=== PATIENT | female | born 1950 | race Caucasian/White ===

== ENCOUNTER 2017-03-01 08:00 | Outpatient (CLI) | payer BC | END 2017-03-01 23:59 | DX: Z00.00 Encounter for general adult medical examination without abnormal findings (principal); E55.9 Vitamin D deficiency, unspecified; E78.5 Hyperlipidemia, unspecified; R53.83 Other fatigue ==

== ENCOUNTER 2018-08-22 11:44 | Outpatient (CLI) | payer BC ==
--- NOTE | 2018-08-22 16:13 | XRAY Report ---
Reason: COUGH FOR 4 WKS Procedure Date: 08/22/2018 Accession Number: [id number] / [id number] Procedure: XR - Chest 2 View X-Ray CPT Code: 53517 FULL RESULT: EXAM: CHEST RADIOGRAPHY EXAM DATE: 08/22/2018 11:56 AM. CLINICAL HISTORY: Cough for 4 weeks. COMPARISON: None. TECHNIQUE: 2 views. FINDINGS: Lungs/Pleura: No focal opacities evident. No pleural effusion. No pneumothorax. Normal volumes. Mediastinum: Heart and mediastinal contours are unremarkable. Other: None. IMPRESSION: Normal 2-view chest radiography. [facility]
== END 2018-08-22 11:45 | disposition home or self-care (01) ==
LOC: DI 11:44
PROVIDERS: ATTEND Nurse Practitioner Family
DX: R05 Cough (principal); R09.3 Abnormal sputum
CPT/HCPCS: 71046

== ENCOUNTER 2019-01-26 12:45 | Outpatient (CLI) | payer BC | END 2019-01-26 12:46 | disposition critical access hospital (66) | LOC: EMS 12:45 | PROVIDERS: ATTEND Surgery | DX: R51 Headache (principal); M25.561 Pain in right knee; R42 Dizziness and giddiness; R09.89 Other specified symptoms and signs involving the circulatory and respiratory systems; W55.19XA Other contact with horse, initial encounter; Y92.009 Unspecified place in unspecified non-institutional (private) residence as the place of occurrence of the external cause | CPT/HCPCS: A0425; A0429 ==

== ENCOUNTER 2019-01-26 13:17 | Emergency (ER) | payer BC ==
--- NOTE | 2019-01-26 13:25 | ED Physician Documentation ---
PD HPI Fall - Stated complaint Stated Complaint: FALL INJURY - History obtained from History obtained from: Patient - History of Present Illness Mechanism of injury: Slipped (Her horse got spooked and knocked her over and then may be trampled her. She is amnestic to it. The major source of pain is her head and right knee. She has been ambulatory briefly since the incident.) Review of Systems Constitutional: denies: Fever, Chills Respiratory: denies: Dyspnea, Cough GI: denies: Abdominal Pain, Nausea, Vomiting, Diarrhea Musculoskeletal: denies: Back pain PD PAST MEDICAL HISTORY - Past Surgical History Past Surgical History: Yes - Present Medications Home Medications: Ambulatory Orders Medication Instructions Recorded Confirmed Hydrocodone/Acetaminophen 1 each PO Q6H PRN #15 tablet 03/11/14 [Hydrocodon-Acetaminophen 5-325] No Known Home Medications 03/11/14 03/11/14 - Allergies Allergies/Adverse Reactions: Allergies Allergy/AdvReac Type Severity Reaction Status Date / Time latex Allergy Unknown Verified 01/26/19 13:27 soy Allergy Cramps Verified 01/26/19 13:27 - Social History Does the pt smoke?: No Smoking Status: Never smoker Does the pt drink ETOH?: Yes Does the pt have substance abuse?: No - Immunizations Immunizations are current?: No Immunizations: TDAP >10years/unknown - POLST Patient has POLST: No PD ED PE NORMAL - Vitals Vital signs reviewed: Yes - General General: Alert and oriented X 3, No acute distress - HEENT HEENT: PERRL, EOMI - Neck Neck: Other (Very mild upper C-spine tenderness, c-collar maintained pending imaging, backward removed using logroll precautions during exam.) - Cardiac Cardiac: RRR, No murmur - Respiratory Respiratory: No respiratory distress, Clear bilaterally - Abdomen Abdomen: Normal bowel sounds, Soft, Non tender - Back Back: No CVA TTP, No spinal TTP - Derm Derm: Normal color, Warm and dry - Extremities Extremities: Other (Tender to the anterior and medial right knee and tenderness above the right ankle and to the anterior left alamo without deformity.) - Neuro Neuro: Alert and oriented X 3, Normal speech Eye Opening: Spontaneous Motor: Obeys Commands Verbal: Oriented GCS Score: 15 - Psych Psych: Normal mood, Normal affect Results - Vitals Vitals: Vital Signs - 24 hr 01/26/19 01/26/19 13:24 13:27 Temperature 36.1 C L Heart Rate 73 64 Respiratory 14 16 Rate Blood Pressure 127/61 120/58 L O2 Saturation 100 100 Oxygen O2 Source Room air - Rads (name of study) CT Head and Cspine Radiology: EMP read contemporaneously (degen dz, NAD) Tib fib XRs Bilat and R knee 4v Radiology: EMP read contemporaneously (normal) Departure - Departure Disposition: 01 Home, Self Care Clinical Impression: Neck pain Concussion Qualifiers: Encounter type: initial encounter Loss of consciousness presence/duration: with LOC of 30 min or less Qualified Code(s): S06.0X1A - Concussion with loss of consciousness of 30 minutes or less, initial encounter Right knee sprain Qualifiers: Encounter type: initial encounter Involved ligament of knee: medial collateral ligament Qualified Code(s): S83.411A - Sprain of medial collateral ligament of right knee, initial encounter Contusion of right leg Qualifiers: Encounter type: initial encounter Qualified Code(s): S80.11XA - Contusion of right lower leg, initial encounter Contusion of left leg Qualifiers: Encounter type: initial encounter Qualified Code(s): S80.12XA - Contusion of left lower leg, initial encounter Condition: Good Record reviewed to determine appropriate education?: Yes Instructions: ED Sprain Knee, ED Concussion Comments: Follow-up with your doctor at the end of the week for recheck. Return for new or worsening symptoms. You can take Tylenol or naproxen as needed for pain.
[2019-01-26] MEDS: NAPROXEN 250 MG TABLET PO STA ×2 (13:35→15:19)
--- NOTE | 2019-01-26 14:50 | CT Report ---
Reason: alyson dinhonorio Procedure Date: 01/26/2019 Accession Number: [id number] / [id number] Procedure: CT - HEAD WO CPT Code: FULL RESULT: EXAM: CT HEAD EXAM DATE: 01/26/2019 02:29 PM. CLINICAL HISTORY: Head injury COMPARISON: None. TECHNIQUE: Multiaxial CT images were obtained from the foramen magnum to the vertex. Reformats: Sagittal and coronal. IV contrast: None. In accordance with CT protocol optimization, one or more of the following dose reduction techniques were utilized for this exam: automated exposure control, adjustment of mA and/or KV based on patient size, or use of iterative reconstructive technique. FINDINGS: Parenchyma: No intraparenchymal hemorrhage. No evidence of mass, midline shift, or CT findings of infarction. Beaulieu-white differentiation is distinct. Extraaxial Spaces: No subdural or epidural collections identified. Ventricles: Normal in size and position. Sinuses and Orbits: Imaged paranasal sinuses, orbits, and mastoids show no significant abnormality. Bones: No evidence of fracture or calvarial defect. Other: None. IMPRESSION: 1. Negative for an acute or focal intracranial abnormality. [facility]
--- NOTE | 2019-01-26 14:54 | CT Report ---
Reason: neck pain Procedure Date: 01/26/2019 Accession Number: [id number] / [id number] Procedure: CT - CERVICAL SPINE WO CPT Code: FULL RESULT: EXAM: CT CERVICAL SPINE WITHOUT CONTRAST DATE: 01/26/2019 02:29 PM. HISTORY: Neck pain. COMPARISONS: None. TECHNIQUE: Thin-section axial images were acquired of the cervical spine without contrast. Post-processing: Coronal and sagittal reformats. Other: None. In accordance with CT protocol optimization, one or more of the following dose reduction techniques were utilized for this exam: automated exposure control, adjustment of mA and/or KV based on patient size, or use of iterative reconstructive technique. FINDINGS: Alignment: No scoliosis or spondylolisthesis. Bones: No fracture or bone lesion. Interspace Levels/Facets: There is moderate disk height loss at C4-C5, C5-C6, and C6-C7. There is mild bony central spinal canal stenosis at C6-C7 secondary to posterior disk osteophyte spurring. Facet joints appear in satisfactory alignment. Musculature: Normal. No fatty atrophy. Other: No apical pneumothorax. Trachea is midline. IMPRESSION: 1. Negative for acute fracture and subluxation of cervical spine. 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 [facility]
[2019-01-26 15:01] VITALS: BP 120/58
--- NOTE | 2019-01-26 15:05 | XRAY Report ---
Reason: knee/leg inj Procedure Date: 01/26/2019 Accession Number: [id number] / [id number] Procedure: XR - Knee 4 View RT CPT Code: FULL RESULT: EXAM: RIGHT KNEE RADIOGRAPHY EXAM DATE: 01/26/2019 02:54 PM. CLINICAL HISTORY: Knee pain after fall from horse. COMPARISON: None. TECHNIQUE: 3 views. FINDINGS: Bones: Normal. No fractures or bone lesions. Joints: Normal. No effusion. No subluxations. Soft Tissues: Normal. No soft tissue swelling. IMPRESSION: No acute radiographic abnormality identified. [facility]
--- NOTE | 2019-01-26 15:06 | XRAY Report ---
Reason: knee/leg inj Procedure Date: 01/26/2019 Accession Number: [id number] / [id number] Procedure: XR - Tib/Fib BILAT CPT Code: FULL RESULT: EXAM: BILATERAL TIBIA/FIBULA RADIOGRAPHY EXAM DATE: 01/26/2019 02:27 PM. CLINICAL HISTORY: Leg pain after fall from horse. COMPARISON: None. TECHNIQUE: 2 views. FINDINGS: Bones: Normal. No fracture or bone lesion. Joints: The visualized knee and ankle joints are normal. No effusions. Soft Tissues: Normal. No soft tissue swelling. IMPRESSION: No acute radiographic abnormality. [facility]
== END 2019-01-26 15:41 | disposition home or self-care (01) ==
LOC: EDUNIT# → ED 13:17
DX: S06.0X1A Concussion with loss of consciousness of 30 minutes or less, initial encounter (principal); S83.411A Sprain of medial collateral ligament of right knee, initial encounter; S80.11XA Contusion of right lower leg, initial encounter; S80.12XA Contusion of left lower leg, initial encounter; W55.12XA Struck by horse, initial encounter; Y93.89 Activity, other specified; M50.321 Other cervical disc degeneration at C4-C5 level
CPT/HCPCS: 70450; 72125; 73564; 73590; 99283; A9270

== ENCOUNTER 2019-05-09 12:57 | Outpatient (CLI) | payer BC ==
--- NOTE | 2019-05-09 13:58 | DEXA Report ---
Reason: POST MENOPAUSAL STATE Procedure Date: 05/09/2019 Accession Number: [id number] / [id number] Procedure: DEX - Dexa Spine and/or Hip CPT Code: FULL RESULT: EXAM: Dexa Spine and/or Hip DATE: 05/09/2019 1:24 PM CLINICAL HISTORY: POST MENOPAUSAL STATE TECHNIQUE: Dual energy x-ray absorptiometry (DXA) was performed on a [employer] System. Regions measured are the AP Spine, femoral neck, and if needed forearm. COMPARISON: None. In accordance with the International Society for Clinical Densitometry (ISCD) guidelines, data from previous exams may be reanalyzed using current recommendations and techniques. This is done to allow a more accurate basis for comparison with the current study. FINDINGS: The data for the lumbar spine is as follows: BMD (g/cm/cm) T-SCORE Z-SCORE REGION L1 1.079 -0.4 1.3 L2 1.148 -0.4 1.3 L3 1.252 0.4 2.1 L4 1.194 -0.1 1.6 TOTAL 1.173 -0.1 1.6 NOTE: All evaluable vertebrae are used for classification The data for the hip is as follows: BMD (g/cm/cm) T-SCORE Z-SCORE REGION Neck 0.819 -1.6 0.2 TOTAL 0.898 -0.9 0.6 NOTE: The femoral neck or total proximal femur, whichever is lowest, is used for classification. IMPRESSION: THE WHO CLASSIFICATION BASED ON THE INTERNATIONAL REFERENCE STANDARD IS NORMAL. THE FRACTURE RISK IS NOT INCREASED. RECOMMENDATION: Patients with diagnosis of osteoporosis or osteopenia should have regular bone mineral density assessment. For those eligible for Medicare, routine testing is allowed once every 2 years. Testing frequency can be increased for patients who have rapidly progressing disease or for those who are receiving medical therapy to restore bone mass. COMMENT: World Health Organization (WHO) definitions for osteoporosis and osteopenia: NORMAL BMD: T-score at -1.0 or higher, fracture risk is low OSTEOPENIA BMD: T-score between -1.0 and -2.5, fracture risk is increased. OSTEOPOROSIS BMD: T-score at -2.5 or lower, fracture risk is high. National Osteoporosis Foundation recommends: 1. Obtain adequate dietary calcium (at least 1200 mg per day) and vitamin D (400-800 international units per day). 2. Participate, as appropriate, in regular weightbearing and muscle-strengthening exercise. 3. Avoid tobacco use and reduce alcohol and caffeine intake. 4. For more detailed information see the website at www.NOF.org.
== END 2019-05-09 12:58 | disposition home or self-care (01) ==
LOC: DI 12:57
PROVIDERS: ATTEND Physician Assistant
DX: Z78.0 Asymptomatic menopausal state (principal)
CPT/HCPCS: 77080

== ENCOUNTER 2019-07-19 08:00 | Outpatient (CLI) | payer BC ==
[2019-07-19 11:59] LABS: BASOPHILS # (AUTO) 0.1 10^3/uL (0.0-0.1); BASOPHILS % (AUTO) 0.9 %; EOSINOPHILS # (AUTO) 0.3 10^3/uL (0.0-0.7); EOSINOPHILS % (AUTO) 4.9 %; HGB - HEMOGLOBIN 13.1 g/dL (12.0-16.0); LYMPHOCYTES # (AUTO) 1.8 10^3/uL (1.5-3.5); LYMPHOCYTES % (AUTO) 33.4 %; MEAN CORPUSCULAR HEMOGLOBIN 29.6 pg (27.0-31.0); MEAN CORPUSCULAR HGB CONC 30.9 g/dL (32.0-36.0); MEAN CORPUSCULAR VOLUME 95.9 fL (81.0-99.0); MEAN PLATELET VOLUME 11.5 fL (7.9-10.8); MONOCYTES # (AUTO) 0.5 10^3/uL (0.0-1.0); MONOCYTES % (AUTO) 9.1 %; NEUTROPHILS # (AUTO) 2.8 10^3/uL (1.5-6.6); NEUTROPHILS % (AUTO) 51.3 %; PLT - PLATELET COUNT 325 10^3/uL (130-450); RED BLOOD COUNT 4.42 10^6/uL (4.20-5.40); RED CELL DISTRIBUTION WIDTH 13.2 % (12.0-15.0); WHITE BLOOD COUNT 5.5 x10^3/uL (4.8-10.8)
[2019-07-19 12:07] LABS: ALBUMIN/GLOBULIN RATIO 1.4 (1.0-2.2); ALKALINE PHOSPHATASE 76 IU/L (42-121); ALT ALANINE AMINOTRANSFERASE 13 IU/L (10-60); AST ASPARTATE AMINOTRANSFERASE 18 IU/L (10-42); BILIRUBIN,TOTAL 0.6 mg/dL (0.2-1.0); BUN - BLOOD UREA NITROGEN 17 mg/dL (6-20); CALCIUM 9.4 mg/dL (8.5-10.3); CARBON DIOXIDE - CO2 28 mmol/L (21-32); CHLORIDE 105 mmol/L (101-111); CHOL/HDL RATIO 2.2 (<4.4); CHOLESTEROL 177 mg/dL; GFR - MDRD 55 (>89); GLUCOSE 89 mg/dL (70-100); HDL CHOLESTEROL 79 mg/dL; LDL CHOLESTEROL,CALCULATED 78 mg/dL; SODIUM 142 mmol/L (135-145); TOTAL PROTEIN 6.9 g/dL (6.7-8.2); VLDL CHOLESTEROL 20 mg/dL
[2019-07-19 12:19] LABS: THYROID STIMULATING HORMONE 2.43 uIU/mL (0.34-5.60)
[2019-07-19 12:21] LABS: FREE T4 (FREE THYROXINE) 0.72 ng/dL (0.58-1.64)
== END 2019-07-19 23:59 | disposition home or self-care (01) ==
LOC: LAB.N 08:00
PROVIDERS: ATTEND Physician Assistant
DX: J45.40 Moderate persistent asthma, uncomplicated (principal); G47.09 Other insomnia; Z13.220 Encounter for screening for lipoid disorders; Z13.1 Encounter for screening for diabetes mellitus
CPT/HCPCS: 36415; 80053; 80061; 83721; 84439; 84443; 85025

== ENCOUNTER 2021-01-16 16:48 | Emergency (ER) | payer MEDICARE, BC ==
[2021-01-16 17:00] VITALS: BP 126/62
--- NOTE | 2021-01-16 17:16 | ED Physician Documentation ---
History of Present Illness - Stated complaint Stated Complaint: numbness & tingling in face aftr vaccine - Chief complaint Chief Complaint: Allergic Rx - History obtained from History obtained from: Patient - Additonal information Additional information: 70-year-old woman received first dose Pfizer Covid vaccine last Monday, 6 days ago. Immediately developed shooting sensation across the face, both sides that is persistent now feeling numbness and tingling of the mouth and Areas as well as the gingiva. Review of Systems Constitutional: denies: Fever, Chills Eyes: denies: Loss of vision, Decreased vision, Photophobia Ears: denies: Loss of hearing, Ear pain Nose: denies: Rhinorrhea / runny nose, Congestion PD PAST MEDICAL HISTORY - Past Surgical History Past Surgical History: Yes - Present Medications Home Medications: Ambulatory Orders Medication Instructions Recorded Confirmed Hydrocodone/Acetaminophen 1 each PO Q6H PRN #15 tablet 03/11/14 [Hydrocodon-Acetaminophen 5-325] No Known Home Medications 03/11/14 03/11/14 - Allergies Allergies/Adverse Reactions: Allergies Allergy/AdvReac Type Severity Reaction Status Date / Time latex Allergy Unknown Verified 01/16/21 17:00 soy Allergy Cramps Verified 01/16/21 17:00 - Social History Does the pt smoke?: No Smoking Status: Never smoker Does the pt drink ETOH?: Yes Does the pt have substance abuse?: No - Immunizations Immunizations are current?: No Immunizations: TDAP >10years/unknown - POLST Patient has POLST: No PD ED PE NORMAL - Vitals Vital signs reviewed: Yes - General General: Alert and oriented X 3, No acute distress - HEENT HEENT: PERRL, EOMI - Neck Neck: Supple, no meningeal sign, No bony TTP - Neuro Neuro: Alert and oriented X 3, trial paralegal 2-12 intact (I am unable to recreate any numbness on examination and her cranial nerves save nerve one which was not tested (be she says she can smell normally) are normal), No motor deficit, No sensory deficit, Normal speech Eye Opening: Spontaneous Motor: Obeys Commands Verbal: Oriented GCS Score: 15 - Psych Psych: Normal mood, Normal affect Results - Vitals Vitals: Vital Signs - 24 hr 01/16/21 16:54 Temperature 36.2 C L Heart Rate 65 Respiratory 16 Rate Blood Pressure 126/62 O2 Saturation 99 Oxygen O2 Source Room air PD MEDICAL DECISION MAKING - ED course ED course: There are several mentions of this online and it looks like every case of it resolved without specific intervention. Nothing to suggest stroke as symptoms cross the midline Departure - Departure Disposition: 01 Home, Self Care Clinical Impression: Paresthesia of skin Condition: Good Record reviewed to determine appropriate education?: Yes Comments: Brief online search suggests that this is not an uncommon reaction to the vaccine. It is not dangerous though and should resolve over time. Return if worsening or if new symptoms develop. Talk out about the injuries and does Discharge Date/Time: 01/16/21 17:26
== END 2021-01-16 17:26 | disposition home or self-care (01) ==
LOC: ED 16:48
DX: R20.2 Paresthesia of skin (principal)
CPT/HCPCS: 99281; 99282

== ENCOUNTER 2021-03-26 11:34 | Outpatient (CLI) | payer MEDICARE, BC ==
[2021-03-26 12:25] LABS: ESTIMATED AVERAGE GLUCOSE 108 mg/dL (70-100); HEMOGLOBIN A1c% 5.4 % (4.27-6.07)
[2021-03-26 12:33] LABS: CK- CREATINE KINASE 81 IU/L (22-269); CRP - C-REACTIVE PROTEIN < 1.0 mg/dL (0-1.0)
[2021-03-30 23:41] LABS: ALPHA 1 GLOBULIN 0.2 g/dL (0.2-0.3); ALPHA 2 GLOBULIN 0.6 g/dL (0.5-0.9); BETA 1 GLOBULIN 0.4 g/dL (0.4-0.6); BETA 2 GLOBULIN 0.3 g/dL (0.2-0.5); GAMMA GLOBULIN 0.7 g/dL (0.8-1.7)
== END 2021-03-26 11:35 | disposition home or self-care (01) ==
LOC: LAB 11:34
PROVIDERS: ATTEND Internal Medicine
DX: R20.0 Anesthesia of skin (principal); R20.2 Paresthesia of skin; K59.09 Other constipation; R06.4 Hyperventilation; K58.9 Irritable bowel syndrome, unspecified; J45.909 Unspecified asthma, uncomplicated; G64 Other disorders of peripheral nervous system
CPT/HCPCS: 36415; 82550; 83036; 84155; 84165; 84443; 85651; 86140

== ENCOUNTER 2021-04-02 12:49 | Outpatient (CLI) | payer MEDICARE, BC ==
[2021-04-02 13:18] LABS: ABG PCO2 35 mmHg (34-45); ABG PH 7.45 (7.35-7.45)
[2021-04-02 13:19] LABS: ABG BASE EXCESS 0.5 mmol/L (-2.0-3.0); ABG HCO3 24.1 mmol/L (22.0-26.0); ABG OXYGEN SATURATION 97 % (94-98); ABG PO2 99 mmHg (80-100); ABG TCO2 25.2 MMOL/L (21.0-29.0); ALLEN TEST POSITIVE
== END 2021-04-02 12:50 | disposition home or self-care (01) ==
LOC: RT 12:49
PROVIDERS: ATTEND Internal Medicine
DX: R06.4 Hyperventilation (principal)
CPT/HCPCS: 36600; 82803

== ENCOUNTER 2021-11-26 17:26 | Outpatient (CLI) | payer MEDICARE, BC ==
--- NOTE | 2021-11-26 18:01 | XRAY Report ---
PROCEDURE: Hips 2V BILAT INDICATIONS: HIP PAIN TECHNIQUE: An AP view of the pelvis and bilateral frog-leg lateral views of the hips were acquired. COMPARISON: None FINDINGS: Bones: No fractures or dislocations. No suspicious bony lesions. The visualized pelvic ring appear s intact. Mild bilateral hip degenerative change. Soft tissues: No suspicious soft tissue calcifications or masses. IMPRESSION: Mild bilateral hip degenerative change. No evidence acute bony abnormality of the pelvis and bilatera l hips. If clinical suspicion and/or symptoms persist, further assessment with repeat plain films or advanced imaging (e.g., CT, MRI, or bone scan) may be helpful for further assessment. Reviewed by: Daryn Shelton MD on 11/26/2021 5:59 PM PST Approved by: Daryn Shelton MD on 11/26/2021 5:59 PM PST Station ID: [id number]
== END 2021-11-26 17:27 | disposition home or self-care (01) ==
LOC: DI.S 17:26
PROVIDERS: ATTEND Internal Medicine
DX: M16.0 Bilateral primary osteoarthritis of hip (principal)

== ENCOUNTER 2022-02-25 08:00 | Outpatient (CLI) | payer MEDICARE, BC ==
[2022-02-25 17:01] LABS: BASOPHILS # (AUTO) 0.1 10^3/uL (0.0-0.1); BASOPHILS % (AUTO) 0.7 %; EOSINOPHILS # (AUTO) 0.2 10^3/uL (0.0-0.7); EOSINOPHILS % (AUTO) 2.5 %; HCT - HEMATOCRIT 43.8 % (37.0-47.0); HGB - HEMOGLOBIN 13.8 g/dL (12.0-16.0); LYMPHOCYTES # (AUTO) 1.4 10^3/uL (1.5-3.5); LYMPHOCYTES % (AUTO) 19.9 %; MEAN CORPUSCULAR HEMOGLOBIN 29.7 pg (27.0-31.0); MEAN CORPUSCULAR HGB CONC 31.5 g/dL (32.0-36.0); MEAN CORPUSCULAR VOLUME 94.4 fL (81.0-99.0); MEAN PLATELET VOLUME 12.1 fL (7.9-10.8); MONOCYTES # (AUTO) 0.6 10^3/uL (0.0-1.0); MONOCYTES % (AUTO) 8.7 %; NEUTROPHILS # (AUTO) 4.7 10^3/uL (1.5-6.6); NEUTROPHILS % (AUTO) 68.1 %; PLT - PLATELET COUNT 294 10^3/uL (130-450); RED BLOOD COUNT 4.64 10^6/uL (4.20-5.40); RED CELL DISTRIBUTION WIDTH 12.9 % (12.0-15.0); WHITE BLOOD COUNT 6.9 x10^3/uL (4.8-10.8)
[2022-02-25 17:17] LABS: ALBUMIN/GLOBULIN RATIO 1.3 (1.0-2.2); BILIRUBIN,TOTAL 0.5 mg/dL (0.2-1.0); CALCIUM 9.4 mg/dL (8.5-10.3); CREATININE 0.9 mg/dL (0.4-1.0); POTASSIUM 4.2 mmol/L (3.5-5.0)
[2022-02-26 10:48] LABS: HEPATITIS C ANTIBODY NON-REACTIVE (NON-REACTIVE)
== END 2022-02-25 23:59 | disposition home or self-care (01) ==
LOC: LAB.R 08:00
PROVIDERS: ATTEND Internal Medicine
DX: Z00.00 Encounter for general adult medical examination without abnormal findings (principal); M54.2 Cervicalgia; R25.1 Tremor, unspecified; K58.9 Irritable bowel syndrome, unspecified; M19.90 Unspecified osteoarthritis, unspecified site; J45.909 Unspecified asthma, uncomplicated; Z13.6 Encounter for screening for cardiovascular disorders; Z11.59 Encounter for screening for other viral diseases; E04.1 Nontoxic single thyroid nodule
CPT/HCPCS: 80053; 84443; 85025; 86803

== ENCOUNTER 2022-03-18 15:17 | Outpatient (CLI) | payer MEDICARE, BC ==
--- NOTE | 2022-03-18 21:21 | Ultrasound Report ---
PROCEDURE: Head or Neck Soft Tissue INDICATIONS: THYROID NODULE TECHNIQUE: Real-time scanning was performed of the thyroid gland, with image documentation. COMPARISON: None FINDINGS: Right: Thyroid lobe measures 4.6 x 1.2 x 1.4 cm, and is homogeneous in echotexture. Left: Thyroid lobe measures 5.1 x 2.1 x 3.0 cm, and is homogenous in echotexture. Isthmus: 2.0 mm thick. Nodule number: One Location: Left Size: 3.6 x 1.8 x 2.9 cm. Composition: Definitely solid Echogenicity: Isoechoic Shape: wider than tall. Margins: Smooth Echogenic foci: None Total points: 3 ACR TI-RADS category: Mildly suspicious IMPRESSION: Left thyroid nodule. Based on imaging characteristics and criteria outlined below ultras ound guided fine-needle aspiration of the nodule is recommended for additional evaluation. ACR TI-RADS definitions and recommendations: TI-RADS 1 (benign): 0 points. FNA not needed. TI-RADS 2 (not suspicious): 2 points. FNA not needed. TI-RADS 3 (mildly suspicious): 3 points. "FNA if 2.5 cm or larger, follow up if 1.5 cm or larger (at 1, 3, and 5 years). TI-RADS 4 (moderately suspicious): 4-6 points. "FNA if 1.5 cm or larger, follow up if 1 cm or larger (at 1, 2, 3, and 5 years). TI-RADS 5 (highly suspicious): 7 points or more. "FNA if 1 cm or larger, follow up if 0.5 cm or larger (every year for 5 years). Reviewed by: Rachel Milton MD, PhD on 03/18/2022 9:20 PM PDT Approved by: Rachel Milton MD, PhD on 03/18/2022 9:20 PM PDT Station ID: [id number]
== END 2022-03-18 15:18 | disposition home or self-care (01) ==
LOC: DI 15:17
PROVIDERS: ATTEND Internal Medicine
DX: E04.1 Nontoxic single thyroid nodule (principal)

== ENCOUNTER 2023-04-07 15:06 | Outpatient (CLI) | payer MEDICARE, BC ==
--- NOTE | 2023-04-08 13:31 | Ultrasound Report ---
PROCEDURE: Head or Neck Soft Tissue INDICATIONS: THYROID NODULE TECHNIQUE: Real-time scanning was performed of the thyroid gland, with image documentation. COMPARISON: 03/18/2022 FINDINGS: Right: Thyroid lobe measures 3.8 x 1.1 x 1.8 cm, and is homogeneous in echotexture. Left: Thyroid lobe measures 5.0 x 2.6 x 2.8 cm, and is homogenous in echotexture. Isthmus: 2 mm thick. Nodule number: One Location: Left lobe Size: 3.5 x 2.1 x 2.5 cm. Previously 3.6 x 1.8 x 2.9 cm Composition: Solid (2 points). Echogenicity: Isoechoic (1 point). Shape: wider than tall. Margins: Smooth (0 points). Echogenic foci: None (0 points). Total points: 3 ACR TI-RADS category: Mildly suspicious (3 points). Nodule number: Two Location: Right lobe Size: 0.5 cm. Composition: Spongiform (0 points). Total points: 0 ACR TI-RADS category: Benign (0 points). IMPRESSION: No significant change in the previously demonstrated nodule at the left lobe of the thyr oid gland. The nodule meets TI-RADS criteria for FNA recommendation. ACR TI-RADS definitions and recommendations: TI-RADS 1 (benign): 0 points. FNA not needed. TI-RADS 2 (not suspicious): 2 points. FNA not needed. TI-RADS 3 (mildly suspicious): 3 points. "FNA if 2.5 cm or larger, follow up if 1.5 cm or larger (at 1, 3, and 5 years). TI-RADS 4 (moderately suspicious): 4-6 points. "FNA if 1.5 cm or larger, follow up if 1 cm or larger (at 1, 2, 3, and 5 years). TI-RADS 5 (highly suspicious): 7 points or more. "FNA if 1 cm or larger, follow up if 0.5 cm or larger (every year for 5 years). Reviewed by: Ye Rodriguez MD on 04/08/2023 1:29 PM PDT Approved by: Ye Rodriguez MD on 04/08/2023 1:29 PM PDT Station ID: [id number]
== END 2023-04-07 15:07 | disposition home or self-care (01) ==
LOC: DI 15:06
PROVIDERS: ATTEND Internal Medicine
DX: E04.2 Nontoxic multinodular goiter (principal)

== ENCOUNTER 2023-09-23 08:00 | Outpatient (CLI) | payer MEDICARE, BC | END 2023-09-23 23:59 | disposition home or self-care (01) | LOC: LAB.S 08:00 | PROVIDERS: ATTEND Physician Assistant | DX: J20.9 Acute bronchitis, unspecified (principal); Z20.822 Contact with and (suspected) exposure to COVID-19 ==

== ENCOUNTER 2023-09-23 08:00 | Outpatient (CLI) | payer MEDICARE, BC ==
--- NOTE | 2023-09-23 22:48 | XRAY Report ---
PROCEDURE: Chest 2 View X-Ray INDICATIONS: ACUTE BRONCHITIS TECHNIQUE: 2 views of the chest were acquired. COMPARISON: 08/22/2018 FINDINGS: Surgical changes and devices: None. Lungs and pleura: No pleural effusions or pneumothorax. Lungs are clear. Mediastinum: Mediastinal contours appear normal. Heart size is normal. Bones and chest wall: No suspicious bony lesions. Age-appropriate degenerative changes are seen. O verlying soft tissues appear unremarkable. IMPRESSION: No acute cardiopulmonary process. No focal infiltrates are seen. Reviewed by: Iraj Ruby MD on 09/23/2023 9:47 PM RUST Approved by: Iraj Ruby MD on 09/23/2023 9:47 PM RUST Station ID: [id number]
== END 2023-09-23 23:59 | disposition home or self-care (01) ==
LOC: DI.S 08:00
PROVIDERS: ATTEND Physician Assistant
DX: J20.9 Acute bronchitis, unspecified (principal)

== ENCOUNTER 2024-01-16 07:55 | Outpatient (CLI) | payer MEDICARE, BC ==
[2024-01-16 08:19] LABS: CREATININE 1.1 mg/dL (0.6-1.3)
[2024-01-16] MEDS ORDERED: IOVERSOL 320 100 ML VIAL IVP ONE (08:31)
--- NOTE | 2024-01-16 15:51 | CT Report ---
PROCEDURE: Chest W INDICATIONS: DYSPNEA CONTRAST: ioversol 320 98ml TECHNIQUE: After the administration of intravenous contrast, a CT scan of the chest was performed. Images were recorded and evaluated at appropriate window settings. Reformats: axial MIP of the chest, coronal and sagittal. For radiation dose reduction, the following was used: automated exposure control, adjustme nt of mA and/or kV according to patient size. COMPARISON: Thyroid ultrasound dated 04/07/2023. FINDINGS: Image quality: Diagnostic. Chest wall and lower neck: There is a large heterogeneous left thyroid nodule which was characterized on the comparison ultrasound dated 04/07/2023. Right thyroid lobe is unremarkable. No axillary or sup raclavicular adenopathy by size. Lungs and pleura: Patchy tree-in-bud pulmonary radiopacities are present peripherally at the apices b ilaterally. These are slightly more confluent in the right lung than in the left. Scattered tree-in-b ud airspace opacities are also present at the inferior aspect of the right upper lobe. Trace tree-in- bud radiopacities are also present at the base of the right middle lobe. No other acute airspace opac ities. No pleural effusions. No pneumothorax. No suspicious pulmonary nodules which require follow up. Mediastinum: Heart size is normal. No pericardial effusion. No large vessel abnormality. No mediastin al adenopathy by size criteria. There is a small hiatal hernia. Bones: No aggressive osseous abnormality. Upper Abdomen: Unremarkable. IMPRESSION: 1. Multifocal tree-in-bud pulmonary radiopacities suggesting endobronchial spread of infection. [address] follow-up is recommended to ensure resolution of these findings. Reviewed by: Ghada Yu MD on 01/16/2024 3:50 PM PST Approved by: Ghada Yu MD on 01/16/2024 3:50 PM PST Station ID: [id number]
== END 2024-01-16 07:56 | disposition home or self-care (01) ==
LOC: LAB 07:55
PROVIDERS: ATTEND Internal Medicine
DX: J45.909 Unspecified asthma, uncomplicated (principal); R06.00 Dyspnea, unspecified; Z79.899 Other long term (current) drug therapy
CPT/HCPCS: 36415; 82565

== ENCOUNTER 2024-01-16 08:55 | Outpatient (CLI) | payer MEDICARE, BC ==
[2024-01-16] MEDS: ALBUTEROL 1 PUFF INH STA (14:57)
== END 2024-01-16 08:56 | disposition home or self-care (01) ==
LOC: RT 08:55
PROVIDERS: ATTEND Internal Medicine
DX: J45.909 Unspecified asthma, uncomplicated (principal); R06.00 Dyspnea, unspecified; Z79.899 Other long term (current) drug therapy; R91.8 Other nonspecific abnormal finding of lung field
CPT/HCPCS: 36415; 82565; 94060; 94727; 94729

== ENCOUNTER 2024-01-26 12:34 | Emergency (ER) | payer MEDICARE, BC ==
[2024-01-26 12:50] VITALS: BP 118/86; O2SAT 100
--- NOTE | 2024-01-26 12:55 | ED Physician Documentation ---
PD HPI HEADACHE - Stated complaint Stated Complaint: GLF, HIT HEAD, WHITING - Chief complaint Chief Complaint: Trauma Hd/Nk - History obtained from History obtained from: Patient - Additional information Additional information: At 1115 this morning she was in her barn. She was backing up and sounds like she tripped on her dog and fell and hit her occiput on concrete with severe headache. No loss of consciousness. No other injuries. PD PAST MEDICAL HISTORY - Past Medical History Past Medical History: No Cardiovascular: None Respiratory: None Neuro: None Endocrine/Autoimmune: None GI: None STOCKROOM KEEPER: None : Kidney stones HEENT: None Psych: None Musculoskeletal: None Derm: None - Past Surgical History Past Surgical History: Yes - Present Medications Home Medications: Ambulatory Orders Medication Instructions Recorded Confirmed Hydrocodone/Acetaminophen 1 each PO Q6H PRN #15 tablet 03/11/14 [Hydrocodon-Acetaminophen 5-325] No Known Home Medications 03/11/14 03/11/14 - Allergies Allergies/Adverse Reactions: Allergies Allergy/AdvReac Type Severity Reaction Status Date / Time latex Allergy Unknown Verified 01/26/24 12:38 soy Allergy Cramps Verified 01/26/24 12:38 - Social History Does the pt smoke?: No Smoking Status: Never smoker Does the pt drink ETOH?: Yes Does the pt have substance abuse?: No - Immunizations Immunizations are current?: No Immunizations: TDAP >10years/unknown - POLST Patient has POLST: No PD ED PE NORMAL - Vitals Vital signs reviewed: Yes - General General: Alert and oriented X 3, No acute distress - HEENT HEENT: PERRL, EOMI, Other (Boggy hematoma on the right occiput) - Neck Neck: Supple, no meningeal sign, No bony TTP - Neuro Neuro: Alert and oriented X 3 Eye Opening: Spontaneous Motor: Obeys Commands Verbal: Oriented GCS Score: 15 - Psych Psych: Normal mood, Normal affect Results - Vitals Vitals: Vital Signs - 24 hr 01/26/24 12:38 Temperature 36.8 C Heart Rate 60 Respiratory 16 Rate Blood Pressure 118/86 H O2 Saturation 100 Oxygen O2 Source Room air - Rads (name of study) CT of the head was unremarkable with the exception of chronic right sphenoid sinusitis. Relevant Findings:: Final report received, EMP independent interpretation of test PD Medical Decision Making - ED course ED course: 73-year-old woman with isolated headache/head injury. CT imaging without trauma. Did discuss incidental finding of sphenoid sinusitis with her and she is asymptomatic from that. She requested naproxen which was administered. Departure - Departure Disposition: 01 Home, Self Care Clinical Impression: Concussion Qualifiers: Encounter type: initial encounter Loss of consciousness presence/duration: without LOC Qualified Code(s): S06.0X0A - Concussion without loss of consciousness, initial encounter Condition: Good Record reviewed to determine appropriate education?: Yes Instructions: ED Concussion Comments: CAT scan was normal of your head, we did see some fluid in the right sphenoid sinus which looks chronic, if it is bothering you you can talk with your doctor about an ENT referral for that. You can continue naproxen for pain. Return for new or worsening symptoms. Try to avoid activities where you are at risk for head injury in the short-term. Forms: PCP List Discharge Date/Time: 01/26/24 13:45
[2024-01-26] MEDS: NAPROXEN 250 MG TABLET PO STA (13:03)
--- NOTE | 2024-01-26 13:39 | CT Report ---
PROCEDURE: Head WO INDICATIONS: head inj TECHNIQUE: Noncontrast 4.5 mm thick angled axial sections acquired from the foramen magnum to the vertex. For r adiation dose reduction, the following was used: automated exposure control, adjustment of mA and/or kV according to patient size. COMPARISON: None. FINDINGS: Image quality: Excellent. CSF spaces: Basal cisterns are patent. No extra-axial fluid collections. Ventricles are normal in size and shape. Brain: No midline shift. No intracranial masses or hemorrhage. Beaulieu-white matter interface is norm al. Skull and face: Calvarium and visualized facial bones are intact, without suspicious lesions. Sinuses: Right sphenoid sinus mucosal thickening. Other paranasal sinuses and mastoids are clear. IMPRESSION: 1. No acute intracranial process. 2. Chronic right sphenoid sinusitis. Reviewed by: Daryn Shelton MD on 01/26/2024 1:38 PM PDT Approved by: Daryn Shelton MD on 01/26/2024 1:38 PM PDT Station ID: [id number]
== END 2024-01-26 13:45 | disposition home or self-care (01) ==
LOC: ED 12:34
DX: S06.0X0A Concussion without loss of consciousness, initial encounter (principal); W01.0XXA Fall on same level from slipping, tripping and stumbling without subsequent striking against object, initial encounter
CPT/HCPCS: 70450; 99284; A9270

== ENCOUNTER 2024-04-16 08:54 | Outpatient (CLI) | payer MEDICARE, BC ==
[2024-04-16 09:20] LABS: CREATININE 1.3 mg/dL (0.6-1.3)
--- NOTE | 2024-04-16 12:56 | CT Report ---
PROCEDURE: Chest WO INDICATIONS: PULMONARY NODULES TECHNIQUE: A CT scan of the chest was performed. Intravenous contrast media was not administered. Images were re corded and evaluated at appropriate window settings. Reformats: axial MIP of the chest, coronal and s agittal. For radiation dose reduction, the following was used: automated exposure control, adjustment of mA and/or kV according to patient size. COMPARISON: 01/16/2024. 04/07/2023. FINDINGS: Image quality: Diagnostic. Chest wall and lower neck: Decreased large left thyroid nodule measuring 2.6 x 2.0 cm, previously 3.6 x 2.5 cm. No axillary or supraclavicular adenopathy by size. Lungs and pleura: No consolidation. No pleural effusions. No pneumothorax. Similar tree-in-bud groun dglass nodules in the upper lobes. Stable tree-in-bud nodules in the right lower lobe. Growing centr ilobular nodules in the right middle lobe. For instance, the 5 mm nodule in the right middle lobe pre viously measured 3 mm (series 4, image 73). Mediastinum: Heart size is normal. No pericardial effusion. No large vessel abnormality. No mediastin al adenopathy by size criteria. Bones: No aggressive osseous abnormality. Upper Abdomen: Unremarkable. IMPRESSION: Stable tree-in-bud groundglass nodules in the upper lobes and solid chamber nodules in the right lowe r lobe, favoring a chronic infectious/inflammatory or respiratory bronchiolitis. Slight interval growth of a centrilobular nodule in the right middle lobe, also likely part of this i nfection or inflammatory process. Additional 3 month follow-up can be considered given interval growt h. 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 Reviewed by: Max Fitzgerald MD on 04/16/2024 12:55 PM PDT Approved by: Max Fitzgerald MD on 04/16/2024 12:55 PM PDT Station ID: [id number]
== END 2024-04-16 08:55 | disposition home or self-care (01) ==
LOC: DI 08:54
PROVIDERS: ATTEND Internal Medicine Critical Care Medicine
DX: R91.8 Other nonspecific abnormal finding of lung field (principal)
CPT/HCPCS: 36415; 82565

== ENCOUNTER 2024-05-10 09:32 | Outpatient (CLI) | payer MEDICARE, BC ==
--- NOTE | 2024-05-10 20:15 | CT Report ---
PROCEDURE: Cervical Spine WO INDICATIONS: BALANCE PROBLEM, POST CONCUSSION SYN, HEADACHE TECHNIQUE: Noncontrast 3 mm thick sections acquired from the skull base to the T4 level. Sagittal and coronal r eformats were then constructed. For radiation dose reduction, the following was used: automated exp osure control, adjustment of mA and/or kV according to patient size. COMPARISON: None. FINDINGS: Image quality: Excellent. Bones: No acute fractures or dislocations. Visualized superior ribs are intact. Multilevel disc sp mervin narrowing and degenerative endplate changes with areas of endplate sclerosis, most notably at the C4-5 and C5-6 levels. There is slightly prominent posterior disc osteophyte complex at C6-7. Multile jorge uncovertebral joint and facet hypertrophy are seen, which results in minimal to the level high-gr loree narrowing of the bony neural foramina throughout the majority of the cervical spine, overall wors t at the right C3-4 level. Moderate spinal canal narrowing is seen at C5-6 and C6-7. No high-grade sp inal canal stenosis identified. Soft tissues: Prevertebral soft tissues are normal in thickness. No paravertebral hematomas. No ap ical pneumothoraces. IMPRESSION: 1.No acute, displaced fracture or traumatic subluxation. 2.Moderate multilevel spondylosis. Spinal canal narrowing is moderate at the C5-6 and C6-7 levels. No high-grade spinal canal stenosis. 3.Multifocal high-grade neuroforaminal narrowing, most notably at the C3-4 level on the right. Reviewed by: Ye Howell MD on 05/10/2024 8:14 PM PDT Approved by: Ye Howell MD on 05/10/2024 8:14 PM PDT Station ID: [id number]
== END 2024-05-10 09:33 | disposition home or self-care (01) ==
LOC: DI 09:32
PROVIDERS: ATTEND Internal Medicine
DX: R26.89 Other abnormalities of gait and mobility (principal); F07.81 Postconcussional syndrome; R51.9 Headache, unspecified; J32.9 Chronic sinusitis, unspecified; M47.812 Spondylosis without myelopathy or radiculopathy, cervical region; M48.02 Spinal stenosis, cervical region